=== PATIENT | female | born 1945 | race Caucasian/White ===

== ENCOUNTER 2022-12-10 19:17 | Outpatient (CLI) | payer MEDICARE, SELFPAY | END 2022-12-10 19:18 | disposition home or self-care (01) | LOC: AMB 12-24 08:30 | PROVIDERS: PCP Family Medicine; Visit Provider Emergency Medicine | DX: I49.9 Cardiac arrhythmia, unspecified (principal); R11.2 Nausea with vomiting, unspecified; R42 Dizziness and giddiness | CPT/HCPCS: A0425; A0427 ==